=== PATIENT | female | born 1975 | race Caucasian/White ===

== ENCOUNTER 2018-02-07 22:26 | Emergency (ER) | payer MEDICAID ==
[~2018-02-07] VITALS: Ht 160 cm; Wt 72.0 kg
[2018-02-08] MEDS ORDERED: KETOROLAC 15MG/ML VIAL IV ONE (03:00)
[2018-02-08 03:38] LABS: BASOPHILS % 0.9 % (0.0-2.0); EOSINOPHILS % 3.6 % (0.0-5.0); HEMATOCRIT. 34.3 % (36.0-48.0); LYMPHOCYTES % 24.4 % (20.0-50.0); MEAN CORPUSCULAR HEMOGLOBIN 29.4 pg (28.0-32.0); MEAN CORPUSCULAR VOLUME 83.9 fL (81.0-99.0); MEAN PLATELET VOLUME 6.7 fl (7.4-10.4); NEUTROPHILS % 66.1 % (40.0-76.0); PLATELET 331 x1000/uL (130-400); RED BLOOD CELL COUNT 4.09 mill/uL (4.2-5.4); RED CELL DISTRIBUTION WIDTH 12.8 % (11.6-14.6)
[2018-02-08 03:41] LABS: CHLORIDE 105 mEq/L (98-107)
[2018-02-08 05:46] VITALS: BP 119/70
== END 2018-02-08 05:49 | disposition home or self-care (01) ==
LOC: ER 22:34
DX: R07.89 Other chest pain (principal); I11.9 Hypertensive heart disease without heart failure; E78.00 Pure hypercholesterolemia, unspecified; K21.9 Gastro-esophageal reflux disease without esophagitis
CPT/HCPCS: 36415; 71045; 80053; 81025; 85025; 93005; 96374; 99285; J1885

== ENCOUNTER 2018-02-12 15:01 | Emergency (ER) | payer MEDICAID ==
[~2018-02-12] VITALS: Ht 157.5 cm; Wt 68.0 kg
[2018-02-12] MEDS ORDERED: MAGNESIUM/ALUMINUM HYDROXIDE/SIMETHICONE 30ML UDC PO ONE (15:30)
[2018-02-12] MEDS ORDERED: FAMOTIDINE 20MG TABLET PO ONE (15:30)
[2018-02-12 16:06] LABS: EOSINOPHILS % 5.6 % (0.0-5.0); HEMATOCRIT. 33.5 % (36.0-48.0); HEMOGLOBIN. 11.9 g/dL (12.0-16.0); LYMPHOCYTES % 27.2 % (20.0-50.0); MEAN CORPUSCULAR HEMOGLOBIN 29.7 pg (28.0-32.0); MEAN CORPUSCULAR VOLUME 83.5 fL (81.0-99.0); MEAN PLATELET VOLUME 6.8 fl (7.4-10.4); MONOCYTES % 7.6 % (2.0-8.0); NEUTROPHILS % 58.6 % (40.0-76.0); PLATELET 319 x1000/uL (130-400); RED BLOOD CELL COUNT 4.01 mill/uL (4.2-5.4); RED CELL DISTRIBUTION WIDTH 12.7 % (11.6-14.6)
[2018-02-12 16:11] LABS: CHLORIDE 102 mEq/L (98-107); D-DIMER 1.49 mg/L FEU (<0.50); INR 1.1; PARTIAL THROMBOPLASTIN TIME 24.5 sec (23.4-31.0)
[2018-02-12 16:20] LABS: ETHANOL BLOOD < 10 mg/dL
[2018-02-12 16:38] LABS: HCG SCREEN NEGATIVE
[2018-02-12] MEDS ORDERED: KETOROLAC 30MG/ML VIAL IV ONE (17:00)
[2018-02-12 17:07] LABS: *AMPHETAMINES SCREEN URINE NEGATIVE (NEGATIVE); *BARBITURATES SCREEN URINE NEGATIVE (NEGATIVE); *BENZODIAZEPINES SCREEN URINE NEGATIVE (NEGATIVE)
[2018-02-12 17:08] LABS: *COCAINE SCREEN URINE NEGATIVE (NEGATIVE); CANNABINOID URINE SCREEN NEGATIVE (NEGATIVE); METHADONE URINE SCREEN NEGATIVE (NEGATIVE); OPIATES URINE SCREEN NEGATIVE (NEGATIVE); PHENCYCLIDINE URINE SCREEN NEGATIVE (NEGATIVE)
[2018-02-12] MEDS ORDERED: IOHEXOL-350 100 ML BOTTLE ONE (17:37)
[2018-02-12 17:57] VITALS: BP 107/67
== END 2018-02-12 18:10 | disposition home or self-care (01) ==
LOC: ER 15:55 → CANRESERV 20:00 → ENRESERV 20:00 → CANBEDREQ 23:05
DX: K21.9 Gastro-esophageal reflux disease without esophagitis (principal); R51 Headache; E78.00 Pure hypercholesterolemia, unspecified; R06.02 Shortness of breath
CPT/HCPCS: 36415; 71045; 71275; 80053; 80305; 83880; 84484; 84703; 85025; 85379; 85610; 85730; 93005; 96374; 99285; G0482; J1885; Q9967

== ENCOUNTER 2018-04-01 01:45 | Emergency (ER) | payer MEDICAID ==
[~2018-04-01] VITALS: Ht 162.6 cm; Wt 64.0 kg
[2018-04-01] MEDS ORDERED: KETOROLAC 30MG/ML VIAL IV STA (03:29)
[2018-04-01 03:54] LABS: CHLORIDE 106 mEq/L (98-107)
[2018-04-01 04:03] LABS: BASOPHILS % 0.6 % (0.0-2.0); EOSINOPHILS % 3.5 % (0.0-5.0); HEMATOCRIT. 34.1 % (36.0-48.0); HEMOGLOBIN. 11.7 g/dL (12.0-16.0); LYMPHOCYTES % 21.7 % (20.0-50.0); MEAN CORPUSCULAR HEMOGLOBIN 28.5 pg (28.0-32.0); MEAN CORPUSCULAR VOLUME 83.2 fL (81.0-99.0); MEAN PLATELET VOLUME 7.4 fl (7.4-10.4); MONOCYTES % 6.3 % (2.0-8.0); NEUTROPHILS % 67.9 % (40.0-76.0); PLATELET 311 x1000/uL (130-400); RED BLOOD CELL COUNT 4.09 mill/uL (4.2-5.4); RED CELL DISTRIBUTION WIDTH 13.3 % (11.6-14.6)
[2018-04-01 04:44] LABS: CLARITY URINE CLEAR (CLEAR); COLOR URINE YELLOW (YELLOW); KETONES URINE NEGATIVE (NEGATIVE); LEUKOCYTE ESTERASE URINE NEGATIVE (NEGATIVE); NITRITE URINE NEGATIVE (NEGATIVE); OCCULT BLOOD URINE NEGATIVE (NEGATIVE); PH URINE 6.5 (4.5-8.0); PROTEIN URINE NEGATIVE (NEGATIVE); SPECIFIC GRAVITY URINE 1.015 (1.005-1.030); UROBILINOGEN URINE 0.2 E.U./dL (0.2-1.0)
[2018-04-01 06:21] VITALS: BP 106/68
[2018-04-01] MEDS ORDERED: IOHEXOL-350 100 ML BOTTLE ONE (06:22)
== END 2018-04-01 06:50 | disposition home or self-care (01) ==
LOC: ER 02:07
DX: R07.89 Other chest pain (principal); F41.9 Anxiety disorder, unspecified; E78.00 Pure hypercholesterolemia, unspecified
CPT/HCPCS: 36415; 71045; 71275; 80053; 81003; 81025; 84484; 85025; 85379; 93005; 96374; 99284; J1885; Q9967